=== PATIENT | male | born 2000 | race Caucasian/White ===

== ENCOUNTER 2019-08-04 07:59 | Emergency (ER) | payer OTHER ==
[~2019-08-04] VITALS: Ht 177.8 cm; Wt 87.5 kg
[2019-08-04] MEDS ORDERED: IBUP-1022 PO (08:07)
--- NOTE | 2019-08-04 08:56 | REP ---
Scrotal sonography: History: Swelling left testicle. Findings: High-resolution bilateral scrotal sonography shows small bilateral hydroceles. Blood flow is intact to both testes. Resistive indices by Doppler are 0.54 on the right and 0.51 on the left. There is no evidence of intratesticular mass lesion on either side. Right testis measures 4.4 x 2.4 x 2.8 cm. Left testis measurements are 4.1 x 2.5 x 3.0 cm. There is some hyperemia to the left epididymis in the body and tail region raising question of epididymitis. There is no evidence of hernia or varicocele. Impression: Hyperemic left epididymis question epididymitis. Otherwise negative. Electronically Signed by Juan Ordoñez MD 08/04/2019 08:47 A
[2019-08-04] MEDS ORDERED: LIDOCAINE 1% SDV 5 ML VIAL DILUENT ONE (09:15)
[2019-08-04] MEDS ORDERED: cefTRIAXone SOD 250 MG VIAL (J0696) IM ONE (09:15)
[2019-08-04] MEDS ORDERED: DOXY100C37 PO (09:40)
[2019-08-04 09:41] VITALS: BP 145/66
[2019-08-04 12:11] LABS: CHLAMYDIA DNA AMPLIFICATION POSITIVE (NEGATIVE); GC DNA AMPLIFICATION NEGATIVE (NEGATIVE)
== END 2019-08-04 09:43 | disposition home or self-care (01) ==
LOC: M ED 07:59
DX: N45.1 Epididymitis (principal); N43.3 Hydrocele, unspecified
CPT/HCPCS: 76870; 81001; 87086; 87491; 87591; 93976; 96372; 99283; J0696

== ENCOUNTER → 2021-08-30 | Outpatient (CLI) | payer OTHER ==
[~2021-08-30] MED LIST: DOXY-443 PO; IBUP-1022 PO
== END ==
LOC: M RAD 11:35
PROVIDERS: ATTEND Physician Assistant
DX: N50.812 Left testicular pain (principal); N43.3 Hydrocele, unspecified

== ENCOUNTER → 2021-12-26 | Outpatient (CLI) | payer OTHER | LOC: M RAD 08:57 | PROVIDERS: ATTEND Specialist | DX: N45.1 Epididymitis (principal); N50.3 Cyst of epididymis; N43.3 Hydrocele, unspecified ==